=== PATIENT | female | born 1955 | race Hispanic/Latino ===

== ENCOUNTER 2018-08-26 16:07 | Outpatient (CLI) | payer MEDICARE ==
--- NOTE | 2018-08-26 16:30 | RAD ---
EXAM: Left shoulder 3 views: HISTORY: Left shoulder pain COMPARISON: None FINDINGS: Prominent undersurface spur of the lateral acromium. Degenerative changes. No acute fracture or dislocation or other significant acute osseous abnormality. IMPRESSION: No significant acute process.
== END 2018-08-26 16:08 | disposition home or self-care (01) ==
LOC: BICRAD 16:07
PROVIDERS: ATTEND Family Medicine
DX: M25.512 Pain in left shoulder (principal)

== ENCOUNTER 2019-04-15 16:01 | Outpatient (CLI) | payer MEDICARE ==
--- NOTE | 2019-04-15 16:30 | RAD ---
Chest 2 views HISTORY: Bronchitis. Cough. FINDINGS: Cardiac silhouette is unremarkable. Pulmonary vasculature upper limits of normal. Mediastin um is midline. No confluent airspace consolidation, pneumothorax, or pleural fluid. There are degenerative changes of the thoracic spine on the lateral view. IMPRESSION: No active cardiopulmonary abnormalities are demonstrated.
== END 2019-04-15 16:02 | disposition home or self-care (01) ==
LOC: BICRAD 16:01
PROVIDERS: ATTEND Family Medicine
DX: J20.9 Acute bronchitis, unspecified (principal)
CPT/HCPCS: 71046

== ENCOUNTER 2020-10-14 08:40 | Outpatient (CLI) | payer MEDICARE | END 2020-10-14 08:41 | disposition home or self-care (01) | LOC: BICMAMMO 08:40 | PROVIDERS: ATTEND Family Medicine | DX: Z12.31 Encounter for screening mammogram for malignant neoplasm of breast (principal); Z13.820 Encounter for screening for osteoporosis; M81.0 Age-related osteoporosis without current pathological fracture | CPT/HCPCS: 77063; 77067; 77080 ==

== ENCOUNTER 2024-01-22 10:35 | Outpatient (CLI) | payer MEDICARE | END 2024-01-22 10:36 | disposition home or self-care (01) | LOC: BICMAMMO 10:35 | PROVIDERS: ATTEND Nurse Practitioner Family | DX: Z12.31 Encounter for screening mammogram for malignant neoplasm of breast (principal) | CPT/HCPCS: 77063; 77067 ==